=== PATIENT | female | born 1945 | race Caucasian/White ===

== ENCOUNTER 2017-04-16 22:02 | Emergency (ER) | payer MEDICARE ==
[~2017-04-16] VITALS: Ht 165.1 cm; Wt 49.0 kg
[2017-04-16] MEDS ORDERED: Bacitracin Oint 15gm Tube TOPIC ONE (23:45)
[2017-04-16] MEDS ORDERED: Cephalexin 500mg cap ORAL ONE (23:45)
[2017-04-16] MEDS ORDERED: Tetanus/Diptheria/Pertussis Vaccine 0.5ml Syr IM ONE (23:45)
[2017-04-17] MEDS ORDERED: BACITRACIN15 GM TOPIC (00:11)
[2017-04-17] MEDS ORDERED: KEFLEX500 MG ORAL (00:11)
[2017-04-17 00:56] VITALS: BP 142/86
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
== END 2017-04-17 00:56 | disposition home or self-care (01) ==
LOC: EMR 22:36
DX: T23.201A Burn of second degree of right hand, unspecified site, initial encounter (principal); T79.9XXA Unspecified early complication of trauma, initial encounter; X08.8XXA Exposure to other specified smoke, fire and flames, initial encounter; Y93.9 Activity, unspecified; Y92.9 Unspecified place or not applicable; Z88.2 Allergy status to sulfonamides; Z23 Encounter for immunization
CPT/HCPCS: 90471; 90715; 99284